=== PATIENT | female | born 1980 | race Caucasian/White ===

== ENCOUNTER 2023-06-11 02:17 | Emergency (ER) | payer MEDICAID ==
[~2023-06-11] VITALS: Ht 152.4 cm; Wt 60.5 kg
[~2023-06-11 02:17] MED LIST: DIVA500T2 PO; HYDR-4353 PO; ZOLP5TAB2 PO; [UNRECOGNIZED DRUG - CODE] PO
[2023-06-11] MEDS ORDERED: TETanus/Pertussis (Acell)/Diphther VAC/PF (Tdap-Adult) 0.5ml syringe IMVAC ONE (03:05)
[2023-06-11] MEDS ORDERED: acetaminophen 325mg tablet PO ONE ×2 (03:05→07:55)
[2023-06-11] MEDS ORDERED: bacitracin 15gm ointment TP ONE (03:05)
[2023-06-11] MEDS ORDERED: LIDOcaine 1% W/epiNEPHrine 1:100,000 20ml vial IJ ONE (03:05)
[2023-06-11] MEDS ORDERED: CefTRIAXone/D5W-Rocephin 1gm 50 ML IV ONE (04:55)
[2023-06-11] MEDS ORDERED: clindamycin 600mg/D5W 50ml 50 ML IV ONE (04:55)
[2023-06-11] MEDS ORDERED: morphine 4 MG/ML inj SYRINge IV ONE (04:55)
[2023-06-11] MEDS ORDERED: ondansetron/PF 4mg/2ml inj IV ONE (04:55)
[2023-06-11 05:16] LABS: BASOPHILS # (AUTO) 0.1 X10'3 (0-0.2); BASOPHILS % (AUTO) 0.7 % (0-1); EOSINOPHILS # (AUTO) 0.2 X10'3 (0-0.9); EOSINOPHILS % (AUTO) 1.5 % (0-6); HEMATOCRIT 39.2 % (35.0-45.0); HEMOGLOBIN 12.8 g/dl (12.0-16.0); LYMPHOCYTES # (AUTO) 2.5 X10'3 (1.1-4.8); LYMPHOCYTES % (AUTO) 17.8 % (21-51); MEAN CORPUSCULAR HEMOGLOBIN 29.4 PG (27.0-31.0); MEAN CORPUSCULAR HGB CONC 32.5 g/dL (33.0-36.5); MEAN CORPUSCULAR VOLUME 90.3 FL (78-98); MEAN PLATELET VOLUME 6.9 FL (7.4-10.4); MONOCYTES # (AUTO) 0.7 X10'3 (0-0.9); MONOCYTES % (AUTO) 4.8 % (2-12); NEUTROPHILS # (AUTO) 10.5 X10'3 (1.8-7.7); NEUTROPHILS % (AUTO) 75.2 % (42-75); PLATELET COUNT 367 X10'3 (140-440); RED BLOOD COUNT 4.35 X10'6 (4.20-5.60); RED CELL DISTRIBUTION WIDTH 13.8 % (11.5-14.5); WHITE BLOOD COUNT 13.9 X10'3 (4.5-11.0)
[2023-06-11 05:28] LABS: ALANINE AMINOTRANSFERASE 22 U/L (12-78); ALBUMIN 3.4 G/DL (3.4-5.0); ALKALINE PHOSPHATASE 93 IU/L (46-116); ANION GAP 8 (8-16); ASPARTATE AMINO TRANSFERASE 15 U/L (10-37); BILIRUBIN,TOTAL 0.2 MG/DL (0.1-1.0); BLOOD UREA NITROGEN 10 MG/DL (7-18); BUN/CREATININE RATIO 12.3 (10.0-20.0); CALCIUM 8.8 MG/DL (8.5-10.1); CHLORIDE 106 MMOL/L (99-107); CREATININE 0.81 MG/DL (0.40-0.90); GLUCOSE 128 MG/DL (70-104); POTASSIUM 3.8 MMOL/L (3.5-5.1); SODIUM 141 MMOL/L (135-145); TOTAL CARBON DIOXIDE 26.7 MMOL/L (24-32); TOTAL PROTEIN 6.8 G/DL (6.4-8.2); eGFR 77 ML/MIN
--- NOTE | 2023-06-11 06:15 | NUR ---
FIRST CONTACT WITH PT. RESTING IN BED, LAC ON LEFT ARM WRAPPED. PT REPORTS MINIMAL PAIN, ABLE TO MOVE ALL FIVE FINGERS. UPDATED ON POC. NO DISTRESS NOTED AT THIS TIME.
--- NOTE | 2023-06-11 06:45 | NUR ---
VERBAL REPORT TO GAURAV. ALL QUESTIONS ANSWERED AT THIS TIME.
[2023-06-11] MEDS ORDERED: LIDOcaine 1% W/epiNEPHrine 1:100,000 20ml vial SQ STA (06:58)
[2023-06-11 07:00] VITALS: BP 128/78
[2023-06-11] MEDS ORDERED: LIDOcaine 1% W/epiNEPHrine 1:100,000 20ml vial SQ ONE ×2 (07:05→07:35)
[2023-06-11] MEDS ORDERED: LIDOCAINE 2% (20mg/ml) w/EPINEPHRINE 1:200,000-PF 10 ML inj. SQ ONE (07:35)
== END 2023-06-11 09:12 | disposition home or self-care (01) ==
LOC: ER 02:18
DX: S61.512A Laceration without foreign body of left wrist, initial encounter (principal); Z88.0 Allergy status to penicillin; W25.XXXA Contact with sharp glass, initial encounter; Y93.89 Activity, other specified; Y92.89 Other specified places as the place of occurrence of the external cause; Y99.8 Other external cause status
CPT/HCPCS: 12002; 36415; 80053; 85025; 90471; 90715; 96365; 96367; 96375; 99284; A6222; J0696; J2270; J2405; J3490; A6258; A6449

== ENCOUNTER 2023-09-16 02:45 | Inpatient (IN) | payer MEDICAID ==
[~2023-09-16] VITALS: Ht 167.6 cm; Wt 72.7 kg
[2023-09-16] MEDS ORDERED: morphine 4 MG/ML inj SYRINge IV ONE ×2 (03:00→06:55)
[2023-09-16] MEDS ORDERED: normal saline 1000ML IV soln IVB ONE (03:00)
[2023-09-16] MEDS ORDERED: acetaminophen 325mg tablet PO ONE (03:00)
[2023-09-16 03:39] LABS: ALANINE AMINOTRANSFERASE 70 U/L (12-78); ALBUMIN 2.7 G/DL (3.4-5.0); ALBUMIN/GLOBULIN RATIO 0.6 (1.1-1.5); ALKALINE PHOSPHATASE 156 IU/L (46-116); ANION GAP 9 (8-16); ASPARTATE AMINO TRANSFERASE 66 U/L (10-37); BILIRUBIN,TOTAL 0.4 MG/DL (0.1-1.0); BLOOD UREA NITROGEN 11 MG/DL (7-18); BUN/CREATININE RATIO 9.2 (10.0-20.0); CALCIUM 8.6 MG/DL (8.5-10.1); CHLORIDE 96 MMOL/L (99-107); CREATININE 1.19 MG/DL (0.40-0.90); GLUCOSE 202 MG/DL (70-104); POTASSIUM 3.4 MMOL/L (3.5-5.1); SODIUM 131 MMOL/L (135-145); TOTAL CARBON DIOXIDE 26.1 MMOL/L (24-32); TOTAL PROTEIN 7.1 G/DL (6.4-8.2); eCRCL 56 ML/MIN; eGFR 49 ML/MIN
[2023-09-16 03:44] LABS: LIPASE 23 U/L (16-77)
[2023-09-16 04:10] LABS: MEAN PLATELET VOLUME 7.2 FL (7.4-10.4)
[2023-09-16 04:11] LABS: BASOPHILS % (AUTO) 0.2 % (0-1); EOSINOPHILS # (AUTO) 0.1 X10'3 (0-0.9); EOSINOPHILS % (AUTO) 0.3 % (0-6); HEMATOCRIT 39.1 % (35.0-45.0); HEMOGLOBIN 12.9 g/dl (12.0-16.0); LYMPHOCYTES # (AUTO) 0.6 X10'3 (1.1-4.8); LYMPHOCYTES % (AUTO) 2.4 % (21-51); MEAN CORPUSCULAR HEMOGLOBIN 29.8 PG (27.0-31.0); MEAN CORPUSCULAR HGB CONC 33.1 g/dL (33.0-36.5); MEAN CORPUSCULAR VOLUME 90.1 FL (78-98); MONOCYTES # (AUTO) 1.7 X10'3 (0-0.9); MONOCYTES % (AUTO) 6.6 % (2-12); NEUTROPHILS # (AUTO) 23.3 X10'3 (1.8-7.7); NEUTROPHILS % (AUTO) 90.5 % (42-75); PLATELET COUNT 299 X10'3 (140-440); RED BLOOD COUNT 4.33 X10'6 (4.20-5.60); RED CELL DISTRIBUTION WIDTH 13.3 % (11.5-14.5)
[2023-09-16 04:15] LABS: WHITE BLOOD COUNT 25.8 X10'3 (4.5-11.0)
[2023-09-16] MEDS ORDERED: CefTRIAXone/D5W-Rocephin 1gm 50 ML IV ONE (04:20)
[2023-09-16] MEDS ORDERED: iohexol 300mg/ml 100ml inj. ONE (04:24)
--- NOTE | 2023-09-16 04:37 | NUR ---
Waiting for HCG results, for CT of abd/pel
[2023-09-16 04:51] LABS: TOTAL CELLS COUNTED 100
[2023-09-16 04:52] LABS: PLATELET ESTIMATE NORMAL
[2023-09-16 05:32] LABS: BILIRUBIN,URINE NEGATIVE (Neg); CLARITY,URINE SLIGHTLY CLOUDY (Clear); COLOR,URINE YELLOW (Yellow); GLUCOSE, URINE 100 mg/dl (Neg); KETONES,URINE 15 mg/dl (Neg); LEUKOCYTE ESTERASE ,URINE SMALL (Neg); NITRITES, URINE POSITIVE (Neg); OCCULT BLOOD,URINE SMALL (Neg); PROTEIN,URINE 30 mg/dl (Neg)
[2023-09-16 05:36] LABS: URINE HCG NEGATIVE (NEG)
[2023-09-16 05:40] LABS: UA COLLECTION TYPE CLN CATCH MIDSTREAM
--- NOTE | 2023-09-16 05:49 | NUR ---
I have reviewed and agree with all interventions, assessments performed and documented by Mason ENRIQUE
[2023-09-16 05:50] LABS: BACTERIA,URINE 4+ /HPF (Neg); SQUAMOUS EPITHELIAL CELL,UR MANY /LPF (FEW); WBC,URINE TNTC /HPF (0-4)
[2023-09-16 05:53] LABS: URINE AMPHETAMINE SCREEN POSITIVE (Neg); URINE BARBITUATE SCREEN NEGATIVE (Neg); URINE BENZODIAZEPINES SCREEN POSITIVE (Neg); URINE CANNABINOID SCREEN POSITIVE (Neg); URINE COCAINE SCREEN NEGATIVE (Neg); URINE OPIATE SCREEN POSITIVE (Neg); URINE PHENCYCLIDINE SCREEN NEGATIVE (Neg)
--- NOTE | 2023-09-16 07:27 | NUR ---
Received report from Derian Whitman INFORMATION TECHNOLOGY SECURITY ANALYST. Pts are resting quietly.
--- NOTE | 2023-09-16 07:28 | NUR ---
Pt medicated w/ morphine IVP for abd pain. VSS.
[2023-09-16] MEDS ORDERED: mag hydrox/Alum hydrox/simeth 30ml oral suspension PO PRN (08:15)
[2023-09-16] MEDS ORDERED: ondansetron/PF 4mg/2ml inj IV PRN (08:15)
[2023-09-16] MEDS ORDERED: magnesium 4gm in 100ml NS 100 ML IV PRN (08:15)
[2023-09-16] MEDS ORDERED: potassium Cl 20 mEq SR tablet PO PRN (08:15)
[2023-09-16] MEDS ORDERED: potassium Cl 40MEQ/1/2NS 520ml 520 ML IV PRN (08:15)
[2023-09-16] MEDS ORDERED: magnesium hydroxide 30ml (MOM) UD suspension PO PRN (08:15)
[2023-09-16] MEDS ORDERED: magnesium Cl slow-release 64mg tablet PO PRN (08:15)
[2023-09-16] MEDS ORDERED: magnesium 2GM in 50ml NS 50 ML IV PRN (08:15)
[2023-09-16] MEDS: CefTRIAXone/D5W-Rocephin 1gm 50 ML IV SCH (08:25)
[2023-09-16] MEDS: normal saline 1000ml 1,000 ML IV SCH ×2 (09:00→18:15)
[2023-09-16] MEDS: morphine 2 MG/ML inj. syringe IV PRN ×2 (09:10→17:17)
[2023-09-16] MEDS ORDERED: dextrose 50%-water 50ml dispensing syringe IV PRN ×2 (09:30)
[2023-09-16] MEDS ORDERED: glucagon, human recombinant 1mg kit SUBCUT PRN (09:30)
[2023-09-16] MEDS ORDERED: MESSAGE TO PHARMACY PO ONE (09:30)
[2023-09-16] MEDS ORDERED: DEXTROSE 15 GM of carb/4 tabs (each vial/BOTTLE has 4 tablets) PO PRN ×2 (09:30)
[2023-09-16] MEDS ORDERED: insulin Lispro (HumaLOG) vial - multi-dose SQ SCH (09:30)
--- NOTE | 2023-09-16 10:59 | NUR ---
Received order for consult. Met with patient in regards to substance use and to see if patient was interested in resources for treatment options. Patient stated that she only took one xanax and thats why she was positive for benzos. I explained to the patient that she was also positive for meth. She stated that she was ok with that. Declined resources.
[2023-09-16] MEDS: acetaminophen 325mg tablet PO PRN ×2 (11:40→21:12)
[2023-09-16 12:03] LABS: MAGNESIUM 2.1 MG/DL (1.5-2.4); POTASSIUM 3.3 MMOL/L (3.5-5.1)
[2023-09-16 12:15] LABS: HCG SERUM QL NEGATIVE
--- NOTE | 2023-09-16 17:50 | NUR ---
Pt assisted to BSC. Pt voided and stating increased pain with getting up. Pain meds given.
[2023-09-16] MEDS: potassium Cl 20 mEq SR tablet PO PRN (18:01)
[2023-09-16] MEDS ORDERED: NO HOME MEDS (18:41)
[2023-09-16 19:00] VITALS: BP 115/70; PULSE 127; RESP 19; TEMP 99.6; O2SAT 92
[2023-09-16 19:10] VITALS: RESP 17; O2SAT 96
[2023-09-16] MEDS: K and/or MAG REPLACEMENT MC SCH (20:00)
[2023-09-16] MEDS ORDERED: insulin glargine (Lantus) pen - multi-dose SQ SCH (21:00)
[2023-09-16] MEDS: clindamycin 300mg/D5W 50mL 50 ML IV SCH (21:04)
[2023-09-16 22:00] VITALS: BP 122/75; PULSE 117; RESP 17; TEMP 98.7; O2SAT 96
[2023-09-17] VITALS (7 sets, daily range): BP systolic 106–147; BP diastolic 72–84; PULSE 64–111; RESP 15–18; TEMP 98–99.4; O2SAT 92–97
[2023-09-17] MEDS: clindamycin 300mg/D5W 50mL 50 ML IV SCH ×2 (01:25→07:31)
[2023-09-17] MEDS: morphine 2 MG/ML inj. syringe IV PRN ×3 (04:06→16:17)
[2023-09-17] MEDS: normal saline 1000ml 1,000 ML IV SCH ×3 (04:28→16:26)
[2023-09-17] MEDS: acetaminophen 325mg tablet PO PRN ×2 (05:35→22:13)
--- NOTE | 2023-09-17 06:15 | NUR ---
Patient in room [facility]TH[facility] 4024. I have received report from Rae WOODY and had the opportunity to ask questions and assume patient care.
--- NOTE | 2023-09-17 06:56 | NUR ---
I agree with ASSET PROTECTION LEAD physical assessment.
[2023-09-17 07:54] LABS: BASOPHILS % (AUTO) 0.3 % (0-1); EOSINOPHILS # (AUTO) 0.1 X10'3 (0-0.9); EOSINOPHILS % (AUTO) 0.9 % (0-6); HEMATOCRIT 36.6 % (35.0-45.0); HEMOGLOBIN 12.3 g/dl (12.0-16.0); LYMPHOCYTES # (AUTO) 1.1 X10'3 (1.1-4.8); LYMPHOCYTES % (AUTO) 6.7 % (21-51); MEAN CORPUSCULAR HEMOGLOBIN 29.9 PG (27.0-31.0); MEAN CORPUSCULAR HGB CONC 33.5 g/dL (33.0-36.5); MEAN CORPUSCULAR VOLUME 89.3 FL (78-98); MEAN PLATELET VOLUME 7.3 FL (7.4-10.4); MONOCYTES # (AUTO) 1.6 X10'3 (0-0.9); MONOCYTES % (AUTO) 10.3 % (2-12); NEUTROPHILS # (AUTO) 12.9 X10'3 (1.8-7.7); NEUTROPHILS % (AUTO) 81.8 % (42-75); PLATELET COUNT 257 X10'3 (140-440); RED CELL DISTRIBUTION WIDTH 13.3 % (11.5-14.5); WHITE BLOOD COUNT 15.8 X10'3 (4.5-11.0)
[2023-09-17] MEDS: K and/or MAG REPLACEMENT MC SCH ×2 (08:00→20:19)
[2023-09-17 08:21] LABS: ALANINE AMINOTRANSFERASE 121 U/L (12-78); ALBUMIN 2.1 G/DL (3.4-5.0); ALBUMIN/GLOBULIN RATIO 0.4 (1.1-1.5); ALKALINE PHOSPHATASE 222 IU/L (46-116); ANION GAP 8 (8-16); ASPARTATE AMINO TRANSFERASE 85 U/L (10-37); BILIRUBIN,TOTAL 0.4 MG/DL (0.1-1.0); BLOOD UREA NITROGEN 4 MG/DL (7-18); BUN/CREATININE RATIO 5.1 (10.0-20.0); CALCIUM 8.6 MG/DL (8.5-10.1); CHLORIDE 102 MMOL/L (99-107); CREATININE 0.78 MG/DL (0.40-0.90); GLUCOSE 152 MG/DL (70-104); MAGNESIUM 1.9 MG/DL (1.5-2.4); POTASSIUM 3.1 MMOL/L (3.5-5.1); SODIUM 133 MMOL/L (135-145); TOTAL CARBON DIOXIDE 23.2 MMOL/L (24-32); eCRCL 86 ML/MIN; eGFR 80 ML/MIN
[2023-09-17] MEDS: CefTRIAXone/D5W-Rocephin 1gm 50 ML IV SCH (09:04)
[2023-09-17] MEDS: potassium Cl 20 mEq SR tablet PO PRN ×3 (09:04→17:36)
--- NOTE | 2023-09-17 18:01 | NUR ---
Student documentation: I have reviewed all interventions, assessments performed and documented by MARISSA URIAS. Student Medication Administration: For this medication-pass time frame, all medication were reviewed, dispensed, administered and documented per hospital policy by MARISSA URIAS.
--- NOTE | 2023-09-17 18:35 | NUR ---
Problems reprioritized. Patient report given, questions answered & plan of care reviewed with Rae WOODY.
--- NOTE | 2023-09-18 05:54 | NUR ---
I agree with TRIAGE REGISTER NURSE physical assessment
[2023-09-18 05:58] LABS: BASOPHILS # (AUTO) 0.1 X10'3 (0-0.2); BASOPHILS % (AUTO) 0.6 % (0-1); EOSINOPHILS # (AUTO) 0.2 X10'3 (0-0.9); EOSINOPHILS % (AUTO) 2.4 % (0-6); HEMATOCRIT 38.8 % (35.0-45.0); HEMOGLOBIN 12.9 g/dl (12.0-16.0); LYMPHOCYTES # (AUTO) 1.1 X10'3 (1.1-4.8); MEAN CORPUSCULAR HEMOGLOBIN 29.9 PG (27.0-31.0); MEAN CORPUSCULAR HGB CONC 33.3 g/dL (33.0-36.5); MEAN CORPUSCULAR VOLUME 89.9 FL (78-98); MEAN PLATELET VOLUME 7.2 FL (7.4-10.4); MONOCYTES # (AUTO) 1.3 X10'3 (0-0.9); MONOCYTES % (AUTO) 12.6 % (2-12); NEUTROPHILS # (AUTO) 7.5 X10'3 (1.8-7.7); NEUTROPHILS % (AUTO) 73.4 % (42-75); PLATELET COUNT 303 X10'3 (140-440); RED BLOOD COUNT 4.31 X10'6 (4.20-5.60); RED CELL DISTRIBUTION WIDTH 13.7 % (11.5-14.5); WHITE BLOOD COUNT 10.2 X10'3 (4.5-11.0)
[2023-09-18 06:06] LABS: ALANINE AMINOTRANSFERASE 160 U/L (12-78); ALBUMIN 2.1 G/DL (3.4-5.0); ALBUMIN/GLOBULIN RATIO 0.4 (1.1-1.5); ALKALINE PHOSPHATASE 277 IU/L (46-116); ANION GAP 7 (8-16); ASPARTATE AMINO TRANSFERASE 102 U/L (10-37); BILIRUBIN,TOTAL 0.4 MG/DL (0.1-1.0); BLOOD UREA NITROGEN 3 MG/DL (7-18); BUN/CREATININE RATIO 3.8 (10.0-20.0); CHLORIDE 104 MMOL/L (99-107); CREATININE 0.79 MG/DL (0.40-0.90); GLUCOSE 120 MG/DL (70-104); MAGNESIUM 1.9 MG/DL (1.5-2.4); SODIUM 137 MMOL/L (135-145); TOTAL CARBON DIOXIDE 25.9 MMOL/L (24-32); TOTAL PROTEIN 6.8 G/DL (6.4-8.2); eCRCL 85 ML/MIN; eGFR 79 ML/MIN
--- NOTE | 2023-09-18 06:09 | NUR ---
reported off to Guzman WOODY
--- NOTE | 2023-09-18 06:15 | NUR ---
Patient refused to have vital signs taken this morning.
--- NOTE | 2023-09-18 07:00 | NUR ---
Patient in room [facility]TH[facility] 4024. I have received report from Rae WOODY and had the opportunity to ask questions and assume patient care.
--- NOTE | 2023-09-18 07:18 | NUR ---
Patient in room ORTH[facility] 4024. I have received report from Rae ENRIQUE and had the opportunity to ask questions and assume patient care.
[2023-09-18 08:00] VITALS: RESP 17; RESP 18; O2SAT 95
[2023-09-18] MEDS: K and/or MAG REPLACEMENT MC SCH (08:00)
--- NOTE | 2023-09-18 08:16 | NUR ---
PAGER ID: [phone] MESSAGE: Guzman Collins re: [id number] Bess Winkler patient states morphine casues severe headache could we change for norco. thanks Guzman
[2023-09-18] MEDS: CefTRIAXone/D5W-Rocephin 1gm 50 ML IV SCH (08:29)
[2023-09-18] MEDS: morphine 2 MG/ML inj. syringe IV PRN ×2 (08:32→13:58)
[2023-09-18 10:00] VITALS: BP 112/79; PULSE 108; RESP 16; TEMP 98.7; O2SAT 95
[2023-09-18] MEDS: normal saline 1000ml 1,000 ML IV SCH (10:15)
[2023-09-18] MEDS ORDERED: CIPR-259 PO (12:41)
[2023-09-18] MEDS ORDERED: ACET-1008 PO (12:41)
[2023-09-18] MEDS ORDERED: IBUP-1985 PO (12:41)
[2023-09-18 13:58] VITALS: RESP 17
--- NOTE | 2023-09-18 14:53 | NUR ---
Student documentation: I have reviewed all interventions, assessments performed and documented by Kenyon URIAS. Student Medication Administration: For this medication-pass time frame, all medication were reviewed, dispensed, administered and documented per hospital policy by Kenyon URIAS.
--- NOTE | 2023-09-18 15:00 | NUR ---
Patient education gone over for discharge. IV removed, canula intact. Patient wheeled out by staff.
[2023-09-20 18:18] LABS: HBSAG SCREEN Negative (Negative); HEP A AB, IGM Negative (Negative); HEP B CORE AB, IGM Negative (Negative); HEPATITIS C VIRUS ANTIBODY Non Reactive (Non Reactive)
== END 2023-09-18 15:14 | disposition home or self-care (01) | DRG 720 ==
LOC: ER 02:45 → ED HOLD 08:20 → UNDOADMIN 08:20 → ED HOLD 09:36 → ORTHO 4S 18:50 → ED HOLD 18:50 → UNDODISIN 09-18 15:14
PROVIDERS: ADMIT Internal Medicine; ATTEND Internal Medicine
PROC: BW211ZZ Computerized Tomography (CT Scan) of Abdomen and Pelvis using Low Osmolar Contrast (ICD-10-PCS; principal; 2023-09-16)
DX: A41.9 Sepsis, unspecified organism (principal); N17.9 Acute kidney failure, unspecified; E43 Unspecified severe protein-calorie malnutrition; E87.1 Hypo-osmolality and hyponatremia; R16.0 Hepatomegaly, not elsewhere classified; Z20.822 Contact with and (suspected) exposure to COVID-19; N10 Acute pyelonephritis; E87.6 Hypokalemia; F11.10 Opioid abuse, uncomplicated; J45.909 Unspecified asthma, uncomplicated; R73.9 Hyperglycemia, unspecified; F12.10 Cannabis abuse, uncomplicated; F13.10 Sedative, hypnotic or anxiolytic abuse, uncomplicated; Z79.899 Other long term (current) drug therapy; Z88.0 Allergy status to penicillin; Z91.51 Personal history of suicidal behavior; Z68.25 Body mass index [BMI] 25.0-25.9, adult
CPT/HCPCS: 36415; 71045; 74177; 80053; 80074; 80305; 81001; 81025; 83036; 83605; 83690; 83735; 84132; 84145; 84703; 85007; 85025; 87040; 87077; 87081; 87186; 87811; 96361; 96365; 96375; 96376; 99285; G0378; J0696; J1815; J2270; J3490; J7030; Q9967

== ENCOUNTER 2023-11-06 02:45 | Emergency (ER) | payer MEDICAID ==
[~2023-11-06] VITALS: Ht 152.4 cm; Wt 61.4 kg
[~2023-11-06 02:45] MED LIST changes: -DIVA500T2 PO; -HYDR-4353 PO; +IBUP-1985 PO; -ZOLP5TAB2 PO; -[UNRECOGNIZED DRUG - CODE] PO
[2023-11-06 02:47] VITALS: TEMP 97.9
[2023-11-06] MEDS ORDERED: dexamethasone sod phosphate 10mg/ml inj IV STA (03:16)
[2023-11-06 03:17] LABS: BASOPHILS # (AUTO) 0.1 X10'3 (0-0.2); BASOPHILS % (AUTO) 0.6 % (0-1); EOSINOPHILS % (AUTO) 8.4 % (0-6); HEMATOCRIT 41.6 % (35.0-45.0); HEMOGLOBIN 13.7 g/dl (12.0-16.0); LYMPHOCYTES # (AUTO) 2.6 X10'3 (1.1-4.8); LYMPHOCYTES % (AUTO) 21.1 % (21-51); MEAN CORPUSCULAR HEMOGLOBIN 29.6 PG (27.0-31.0); MEAN CORPUSCULAR HGB CONC 32.9 g/dL (33.0-36.5); MEAN PLATELET VOLUME 7.2 FL (7.4-10.4); MONOCYTES % (AUTO) 7.9 % (2-12); NEUTROPHILS # (AUTO) 7.7 X10'3 (1.8-7.7); PLATELET COUNT 367 X10'3 (140-440); RED BLOOD COUNT 4.63 X10'6 (4.20-5.60); RED CELL DISTRIBUTION WIDTH 14.3 % (11.5-14.5); WHITE BLOOD COUNT 12.3 X10'3 (4.5-11.0)
[2023-11-06] MEDS ORDERED: normal saline 1000ml 1,000 ML IV ONE (03:20)
[2023-11-06 03:24] LABS: ALANINE AMINOTRANSFERASE 26 U/L (12-78); ALBUMIN 3.3 G/DL (3.4-5.0); ALBUMIN/GLOBULIN RATIO 0.8 (1.1-1.5); ALKALINE PHOSPHATASE 111 IU/L (46-116); ANION GAP 12 (8-16); ASPARTATE AMINO TRANSFERASE 20 U/L (10-37); BILIRUBIN,TOTAL 0.2 MG/DL (0.1-1.0); BLOOD UREA NITROGEN 10 MG/DL (7-18); BUN/CREATININE RATIO 12.2 (10.0-20.0); CALCIUM 8.8 MG/DL (8.5-10.1); CHLORIDE 101 MMOL/L (99-107); CREATININE 0.82 MG/DL (0.40-0.90); GLUCOSE 128 MG/DL (70-104); POTASSIUM 3.5 MMOL/L (3.5-5.1); SODIUM 137 MMOL/L (135-145); TOTAL CARBON DIOXIDE 24.1 MMOL/L (24-32); TOTAL PROTEIN 7.4 G/DL (6.4-8.2); eCRCL 63 ML/MIN; eGFR 76 ML/MIN
[2023-11-06] MEDS ORDERED: DOXY150T5 PO ×2 (05:13)
[2023-11-06] MEDS ORDERED: DOXY-1 PO (05:16)
[2023-11-06 05:50] VITALS: BP 126/78; PULSE 89; RESP 16; O2SAT 99
[2023-11-06] MEDS ORDERED: ALBU18HF2 INH (05:52)
== END 2023-11-06 06:02 | disposition home or self-care (01) ==
LOC: ER 02:46
DX: J32.9 Chronic sinusitis, unspecified (principal); Z20.822 Contact with and (suspected) exposure to COVID-19; Z72.89 Other problems related to lifestyle; Z88.0 Allergy status to penicillin; Z79.899 Other long term (current) drug therapy
CPT/HCPCS: 36415; 71045; 80053; 85025; 87502; 87503; 87811; 96361; 96374; 99284; J1100; J7030

== ENCOUNTER 2023-11-25 00:07 | Emergency (ER) | payer MEDICAID ==
[~2023-11-25] VITALS: Ht 152.4 cm; Wt 61.4 kg
[~2023-11-25 00:07] MED LIST changes: +ALBU18HF2 INH
[2023-11-25 00:11] VITALS: BP 154/82; PULSE 106; RESP 24; TEMP 98.4; O2SAT 96
== END 2023-11-25 04:25 | disposition left against medical advice (07) ==
LOC: ER 00:08
DX: J45.909 Unspecified asthma, uncomplicated (principal); Z53.21 Procedure and treatment not carried out due to patient leaving prior to being seen by health care provider
CPT/HCPCS: 99281